=== PATIENT | female | born 2005 | race Asian ===

== ENCOUNTER 2025-07-03 12:07 | Emergency (ER) | payer OTHER, SELFPAY ==
[2025-07-03 12:11] VITALS: BP 130/95; PULSE 131; TEMP 38.7; O2SAT 97
--- NOTE | 2025-07-03 12:40 | ED_ITS ---
HPI - General Adult General Time Seen by Provider: 12:40 Date Seen: 07/03/25 Chief complaint: Headache/Migraine Stated complaint: sharp headache, sore throat, fever Time Seen by Provider: 07/03/25 12:32 Source: patient and RN notes reviewed Mode of arrival: ambulatory Limitations: no limitations History of Present Illness HPI narrative: This 19-year-old female is coming in to the ER tearful with complaint of fever and headache. Her symptoms started about 24 hours ago. She has been using Tylenol ibuprofen which only gives relief for short time. She has had sick contacts who have been known to be coughing. She last used Tylenol last night at 10:30 p.m.. 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 She did go home to [facility] but no other travel. She has a history of childhood asthma, no other chronic medical issues. No chance for , not sexually active. She has some cough, sore throat, bad headache, bad generalized body aches. No nausea, vomiting or diarrhea. She did get her influenza vaccine at the school this fall. She has not required any treatment or inhalers for her asthma for a long time. Related Data Home Medications ?Medication ?Instructions ?Recorded ?Confirmed spironolactone 100 mg tablet 100 mg PO DAILY 07/03/25 07/03/25 (Aldactone) Allergies Allergy/AdvReac Type Severity Reaction Status Date / Time No Known Drug Allergies Allergy Verified 07/03/25 12:17 Review of Systems Status of ROS: Reports: 6 or more systems reviewed and unremarkable except as noted in History and below Exam Const: Vital Signs, click to edit/add: Vital Signs - 24 hr 07/03/25 12:11 07/03/25 12:47 Temperature 101.7 F H Pulse Rate [Right Pulse Oximeter] 131 H Blood Pressure [Ri ght Upper Arm] 130/95 H Pulse Oximetry 97 100 Oxygen Delivery Me thod Room Air Tearful but stable patient seen in exam room 7, lying comfortably on the bed. She is alert, interactive, no apparent distress. Sclear clear, conjugate gaze. Pupils are equal and round. TMs normal. Symmetrical facial function. Oropharynx with normal mucosa, no exudates erythema, no concerning tonsillar changes. Neck is supple, no adenopathy, full range of motion. She is able to sit up, lungs are clear, no wheezing or crackles, no tachypnea, no accessory muscle use. CV fast but regular, normal S1-S2 come no murmur. Abdomen is soft, nontender, nondistended, no organomegaly, no rebound or guarding. Patient was ambulatory into the ED of her own accord. Documenting provider has reviewed patient's vital signs: yes Course Course ED Course: Have reviewed with patient I suspect she may have influenza, have seen other cases coming from [place]. Will treat her symptoms with some IV fluids, IV Toradol an oral Tylenol. We discussed the myalgias, headaches and significant symptoms at can come with influenza. Nursing staff had done a triple viral swab in triage appropriately, result is pending. Will also look at a CBC as we are going to start an IV for symptomatic treatment for her. Will make sure her white count is reassuring. Have reviewed with patient there can be false negatives on the influenza testing as we get into outbreaks. She does have a history of asthma, would consider this an indication for treatment with Tamiflu and she is certainly well within guidelines to initiate Tamiflu. Reevaluation(s) Time of Reevaluation #1: 13:29 Reevaluation #1: Have reviewed with patient that she indeed has influenza A. We will give her Tamiflu from [facility]. Discussed expected course and length of illness. Hopefully the Tamiflu will decrease the severity and shorten the illness length. If she is worsening or has further concerns, she is to seek re-evaluation. Patient looks much better at this time. Vital Signs Vital signs: Initial Vital Signs Temperature 101.7 F H 07/03/25 12:11 Temperature Source Temporal Artery Scan 07/03/25 12:11 Pulse Rate 131 H 07/03/25 12:11 Pulse Rhythm Regular 07/03/25 12:11 Pulse Strength 3+ Normal 07/03/25 12:11 Blood Pressure 130/95 H 07/03/25 12:11 Blood Pressure Mean 106 H 07/03/25 12:11 Blood Pressure Position Sitting 07/03/25 12:11 Pulse Oximetry 97 07/03/25 12:11 Oxygen Delivery Method Room Air 07/03/25 12:11 Vital Signs Temperature 101.7 F H 07/03/25 12:11 Pulse Rate 131 H 07/03/25 12:11 Blood Pressure 130/95 H 07/03/25 12:11 Pulse Oximetry 97 07/03/25 12:11 Oxygen Delivery Method Room Air 07/03/25 12:11 Temperature 101.7 F H 07/03/25 12:11 Pulse Rate 131 H 07/03/25 12:11 Blood Pressure 130/95 H 07/03/25 12:11 Pulse Oximetry 100 07/03/25 12:47 Oxygen Delivery Method Room Air 07/03/25 12:11 Medications Administered Medications: Generic Name Dose Route Start Last Admin Trade Name Freq PRN Reason Stop Dose Admin Sodium Chloride 1,000 mls @ 1,000 mls/hr 07/03/25 12:48 07/03/25 13:03 0.9 % Sodium Chloride 1000 Ml IV 07/03/25 13:47 1,000 mls/hr .Q1H CHARLES Administration Discontinued Medications Generic Name Dose Route Start Last Admin Trade Name Freq PRN Reason Stop Dose Admin Acetaminophen 1,000 mg 07/03/25 12:49 07/03/25 13:03 Acetaminophen 500 Mg Tablet PO 07/03/25 12:50 1,000 mg ONCE ONE Administration Ketorolac Tromethamine 15 mg 07/03/25 12:47 07/03/25 13:03 Ketorolac 15 Mg/Ml Inj IVP 07/03/25 12:48 15 mg ONCE ONE Administration Medical Decision Making Lab Data Lab results reviewed: Yes I reviewed the patient's lab results Labs: Lab Results 07/03/25 07/03/25 Range/Units 12:23 12:35 WBC 7.00 (4.50-11.00) K/uL RBC 4.66 (4.00-5.20) m/uL Hgb 14.2 (12.0-16.0) gm/dL Hct 41.9 (33.0-51.0) % MCV 90 (80-100) fL MCH 31 (26-34) pg MCHC 34 (32-36) gm/dL RDW Coeff of Manuel 11.8 (11.5-15.5) % Plt Count 287 (140-440) K/uL Neut % (Auto) 85.4 H (42.0-72.0) % Lymph % (Auto) 8.3 L (20-44) % [place] % (Auto) 6.0 (0.0-11.0) % Eos % (Auto) 0.0 (0.0-7.0) % Baso % (Auto) 0.3 (0.0-3.0) % Neut # (Auto) 6.00 (1.7-7.0) K/uL Lymph # (Auto) 0.60 L (0.90-2.90) K/uL [place] # (Auto) 0.40 (0.00-0.90) K/UL Eos # (Auto) 0.00 (0.00-0.50) K/uL Baso # (Auto) 0.02 (0.00-0.30) K/uL Abs Immat Gran (auto) 0.00 (0.00-0.30) K/uL Imm/Tot Granulo (auto) 0.0 % SARS-CoV-2 (PCR) Negative SARS-CoV-2 (Negative) Influenza Type A (PCR) POSITIVE PCR FLU A A (Negative) Influenza Type B (PCR) Negative PCR FLU B (Negative) RSV (PCR) Negative PCR RSV (Negative) Discharge Plan Discharge Clinical Impression: Influenza A Patient Disposition: Home, Self-Care Condition: Stable Instructions: Influenza (ED) Additional Instructions: Start Tamiflu 75 mg as soon as possible, take 1 pill now and another pill tonight, starting tomorrow you will take 1 pill twice a day to complete the 5 day course. Your likely going to need some ongoing Tylenol and ibuprofen for symptom control until you are feeling better. Follow bottle directions for these. Can use cough and cold medicines as needed for symptom control from [id number]-wnr-[id number] options, follow box or bottle directions of what you are using. If you are not improving over the next week, have concerns for worsening, have other concerns, please seek re-evaluation. You will likely need more rest, stay hydrated with plenty of fluids. You will need to refrain from the public until you are fever free for 24 hours off Tylenol and ibuprofen. Activity Level: Activity as Tolerated Prescriptions: No Action spironolactone [Aldactone] 100 mg tablet 100 mg PO DAILY Follow Up/Referrals: Provider,Not a Local [Primary Care Provider, Family Practice] Stand Alone Forms: [employer] Info Instructions
[2025-07-03 12:47] VITALS: O2SAT 100
[2025-07-03] MEDS: ACETAMINOPHEN 500 MG TABLET 1000 MG PO (13:03)
[2025-07-03 13:09] LABS: Hematocrit* 41.9 % (33.0-51.0); Hemoglobin* 14.2 gm/dL (12.0-16.0); Immature Granulocytes Abs Auto 0.00 K/uL (0.00-0.30); Immature Granulocytes Pct Auto 0.0 %; Mean Corpuscular HGB Conc 34 gm/dL (32-36); Mean Corpuscular Hemoglobin 31 pg (26-34); Mean Corpuscular Volume 90 fL (80-100); RDW Coefficient of Variation % 11.8 % (11.5-15.5); Red Blood Count* 4.66 m/uL (4.00-5.20); White Blood Count* 7.00 K/uL (4.50-11.00)
--- OUTSIDE RECORDS SUMMARY | 2025-07-03 13:11 | XMS_ITS | Clinical Summary ---
Author Organization [facility] Address [address] [place] [address] Care Team Providers Care Commercial Real Estate Appraiser Name Role Phone Nadia Mason) Unavailable [phone] Jane Solano) Primary Care Provider [phone] Source Comments NOTE: The information displayed by Care Everywhere is extracted from the complete medical record and may not identify all current or past patient conditions.[facility] Allergies Active AllergyReactionsCriticalityNoted DateCommentsNo Known Allergies Medications MedicationSigDispense QuantityRefillsLast FilledStart DateEnd DateStatus Inhalational Spacer (AEROCHAMBER MAX - MASK MEDIUM) [facility] Indications:REACTIVE AIRWAY DISEASE, UNSPECIFIEDUSE DIRECTED WITH INHALER 1 ctive Spironolactone (ALDACTONE) 100 mg Oral Tab Indications:ACNETake 1 tablet by mouth daily 100 tablet 1:10 PM PDTctive Doxycycline Monohydrate (AVIDOXY) 100 mg Oral Tab Indications:ACNETake 1 tablet by mouth 2 times a day . May cause stomach upset, increased risk of sunburn or allergic reaction. Take with plenty of water. Do not lie down immediately after taking. Stop if become . Notify physician of any side effects 100 tablet 108 12:19 PM PDT12/20/ctive Clindamycin Phosphate (CLEOCIN) 1 % Top Soln Indications:ACNEApply to affected area(s) 2 times a day 60 mL 12:19 PM PDT12/20/ctive Norgestimate-Ethinyl Estradiol (ORTHO-CYCLEN/SPRINTEC) 0.25-0.035 mg Oral Tab Indications:POLYCYSTIC OVARIESTake 1 active tablet by mouth daily for 12 weeks, followed by a 7 day tablet free period. Repeat the 13 week cycle. Do not use inert pills 112 tablet 6003/10/2025 1:10 PM PDT12/24/ctive tretinoin (Retin-A) 0.025 % Top Crea Indications:ACNEApply to affected area(s) daily at bedtime. Can cause dry, irritated skin that sunburns more easily. If this occurs, may decrease to every other day at bedtime. Stop if become or 20 g 10003/10/2025 12:19 PM PDT12/20/ctive Active Problems ProblemNoted DateDiagnosed ZiebAOAF04/27/2025POLYCYSTIC MMNPNHS0602/15/2021 MELANONYCHIA ZVWIDVS10/15/2018 Overview (05/04/2018): Bilateral index fingernails and left thumb nail involved. Normal per telederm assessment on 05/04/18. SMOKERS IN HOME11/05/2016INTERMITTENT WMEWEQ9208/17/2012 Resolved Problems ProblemNoted DateDiagnosed DateResolved DateHX OF COVID-19 PYWREUM5602/28/2022 09/24/2022 Overview (03/01/2022): Symptoms began 02/27/22 Positive antigen test 02/27/22 End of isolation. 03/09/22 REACTIVE AIRWAY DISEASE, PUWSDAZUGLW99/14/EXPOSURE TO HEPATITIS B VIRUS Immunizations ImmunizationAdministration DatesNext DueCOVID-19 PFizer-BioNtech 12yrs-adult, external gsnoyiapmgmfhc67/14/2022,12/21/2020,1COVID-19 mRNA LNP-S, bivalent PF 12yrs-adult (Pfizer), 30mcg/0.3mL, external admin2DTaP (Diphtheria, Tetanus, acellular Pertussis)09/15/20077806LOnZ-MDL-BGL (Diphtheria, Tetanus, acellular Pertussis, Hepatitis B, Polio)08/06/2006,04/30/2006, 01/24/2006DTaP-EULA (KINRIX) (Diphtheria, tetanus, acellular pertussis, polio) 12/14/2010HAV (Hepatitis A)01/04/2009HAV ped/adol 2 dose milton (Hepatitis A) 09/15/2007HBV (Hepatitis B)2005HBV ped/adol, 3dose milton (Hepatitis B) 03/01/2024HBVig (Hepatitis B Immune globulin)2005HIB PRP-OMP (Haemophilus influenzae b)08/06/2006HIB PRP-T (Haemophilus influenzae b)04/30/2006,01/24/2006 HPV9 (Human Papillomavirus) 9 ggvpwh5312/16/2017,03/04/2017INFS Pres Free 6mos- Adult (Flulaval Quadrivalent) (Influenza)05/18/2022INFS pres free 6mos-adult (Fluarix quadrivalent) (influenza)05/04/2018INFS pres free 6mos-adult (quadrivalent) (influenza)07/03/2021INFS, external zgztpqcejykuov05/13/2020INFs (Influenza split virus ).07/28/2013INFs pres free 6-35m (Influenza)08/07/2012 MENACWY (MENVEO) (MENINGOCOCCAL OLIGOSACCHARIDE ACWY-135)10/07/2022,03/04/2017 MMR (Measles, Mumps, Rubella)12/14/2010MMR-COMPA (Measles, Mumps, Rubella, Varicella)09/15/2007PCV (Pneumococcal conjugate, pneumonia)09/15/2007,08/06/2006 ,04/30/2006,01/24/2006Tdap (ADACEL) (Tetanus, diphtheria, acellular pertussis) 03/04/2017VAR (Varicella, chickenpox)12/14/2010 Family History Medical HistoryRelationCommentsBreast CancerNoneColon CancerNoneOvarian Cancer NoneRelationStatusCommentsFatherAliveBORN 1969MotherAliveBORN 1972SisterAlive BORN 1993 Social History Tobacco UseTypesPacks/DayYears UsedDateSmoking Tobacco: NeverPassive Smoke Exposure: YesSmokeless Tobacco: Never Tobacco Cessation:Counseling Given: Not Answered Comments:Dad and paternal grandfather smoke outside the house. Alcohol UseStandard Drinks/WeekCommentsYes1 (1 standard drink = 0.6 oz pure alcohol)Substance UseTypesUse/WeekCommentsNot CurrentlyCommentsUnknown Sex and Gender InformationValueDate RecordedSex Assigned at BirthNot on file Legal OkyBhyfmh93/21/2013 12:40 PM PDTGender IdentityNot on fileSexual OrientationNot on fileOccupationIndustryJob Start DateJob End DatestudentNot on fileNot on fileNot on file Last Filed Vital Signs Vital SignReadingTime TakenCommentsBlood Smivhfvq465/7707 11:12 AM PDT Lighm429901/20/2025 11:12 AM REIXoftljftxif44.3 ??C (97.4 ??F)01/20/2025 11:12 AM PDTRespiratory Bpca510403/08/2024 9:59 AM PDTOxygen Mzbfomnqir445%01/20/2025 11:12 AM PDTInhaled Oxygen Concentration--Ycxqjm08.2 kg (135 lb)01/20/2025 11:12 AM HBAFykxsq653.1 cm (5' 5)01/20/2025 11:12 AM PDTHead Znulygpmntunm80 cm 10/01/2006 10:00 AM PDTHead Circumference Crlxwpyrtl23.94%10/01/2006 10:00 AM PDTGrowth Chart: WHO (Girls, 0-2 years)Body Mass Index22.4707 11:12 AM PDT Plan of Treatment Health MaintenanceDue DateLast PfcgOnfqaubdAMX25 VACCINE (2 - PCV20/PPSV23) , 08/06/2006, 04/30/2006, Additional history existsACE KBSBJN714CHLAMYDIA UILZZK90501/4COVID-19 VACCINE (KP) - SHARED DECISION MAKING (1)/, 08/03/2021, 12/21/2020, Additional history existsFLU VACCINE (1)/, 07/03/2021, 05/02/2020, Additional history existsTDAP VACCINE (2 - Tdap) HPV THSHYPGVqnwppfec51/29/2018, 03/04/2017MENINGOCOCCAL VACCINECompleted 10/07/2022, 03/04/2017HIV CCAJKCJzeshxhol48/05/2024HEPATITIS B VACCINECompleted 03/01/2024, 08/06/2006, 04/30/2006, Additional history exists Procedures Procedure NamePriorityDate/TimeAssociated DiagnosisCommentsHIV SCREEN (HIV AG, HIV 1, 2 AB), SPRGECNTRMSRymmnkx87/05/2024 10:23 AM PDT ROUTINE ADULT HEALTH CHECK UP EXAM CHLAMYDIA + GC, URINE, OVSMcvihgx87/08/2024 2:00 PM PST ADMINISTRATIVE ENCOUNTER FOR CONFIDENTIAL REASON from Last 3 Months or Most Recently Relevant to Health Maintenance Results * HIV SCREEN (HIV AG, HIV 1, 2 AB), QUALITATIVE (02/23/2024 10:23 AM PDT) ComponentValueRef RangeTest MethodAnalysis TimePerformed AtPathologist SignatureHIV 1+2 AB+FUM8G31 AG, [place] [facility]ACTPM[facility] Comment:Reference Range: Non-ReactiveSpecimen (Source)Anatomical Location / LateralityCollection Method / VolumeCollection TimeReceived Time02/23/2024 10:23 AM PDT02/23/2024 6:25 PM PDT Narrative Authorizing ProviderResult TypeResult StatusJennifer E-Teen (M.D.) [facility] - [facility] ONLYFinal ResultPerforming OrganizationAddressCity/State/ZIP CodePhone Number [facility] [address] [place] [address] * CHLAMYDIA + GC, URINE, AMPLIFIED PROBE (07/28/2023 2:00 PM PST)ComponentValue Ref RangeTest MethodAnalysis TimePerformed AtPathologist SignatureChlamydia sp RNA, urine, amplified probeNEGATIVENEGATIVETPTOOELE VALLEY H[facility], [place] Neisseria gonorrhoeae sp RNA, urine, amplified probeNEGATIVENEGATIVETPMG [facility]ST HOSPITALComment: This test has not been cleared or approved by the US Food and Drug Administration for rectal swab or throat swab specimens. The performance characteristics of this test were determined by [facility]. Specimen (Source)Anatomical Location / LateralityCollection Method / Volume Collection TimeReceived Time07/28/2023 2:00 PM PST07/29/2023 1:41 PM PST Narrative Authorizing ProviderResult TypeResult StatusMira Anali Gonzalez) [facility] ONLYFinal ResultPerforming OrganizationAddressCity/State/ZIP CodePhone Number [facility] [address] [place] [phone] from Last 3 Months or Most Recently Relevant to Health Maintenance Insurance OF [facility] Care Teams Team MemberRelationshipSpecialtyStart DateEnd Date Douthit, Nadia Gonzalez) [address] [place] [phone] (Work) PCP - LEGAL RECRUITER Xxlqptcmr19/8/24 Jane Solaon) [address] [place] [phone] (Work) PCP - General12/26/24
[2025-07-03 13:13] LABS: Lymphocytes Absolute Auto 0.60 K/uL (0.90-2.90); Slide Review Reflex No
[2025-07-03 13:14] VITALS: PULSE 127; O2SAT 98
[2025-07-03 13:15] VITALS: PULSE 114; O2SAT 100
[2025-07-03 13:23] LABS: PCR FLU A POSITIVE PCR FLU A (Negative); PCR FLU B Negative PCR FLU B (Negative); PCR RSV Negative PCR RSV (Negative); SARS PCR* Negative SARS-CoV-2 (Negative)
[2025-07-03 13:30] VITALS: PULSE 119; O2SAT 100
[2025-07-03 13:45] VITALS: PULSE 113; O2SAT 96
== END 2025-07-03 13:57 | disposition home or self-care (01) ==
PROVIDERS: Emergency Provider Family Medicine
DX: J10.1 Influenza due to other identified influenza virus with other respiratory manifestations (principal)
CPT/HCPCS: 36415; 85025; 87631; 94761; 99283; 99284; A9270; J1885; J7030